=== PATIENT | female | born 1940 | race Caucasian/White ===

== ENCOUNTER 2019-05-30 14:34 | Observation (INO) ==
[2019-05-30] MEDS ORDERED: Clindamycin 900 MG/50 ML 900 MG/50 ML IV.SOLN IVPB ONE (14:48)
[2019-05-30] MEDS ORDERED: Acetaminophen IV 1,000 MG/100 ML INFUS..BTL IVPB ONE (15:29)
[2019-05-30] MEDS ORDERED: *HR* Meperidine 25 MG/ML SYRINGE IVP PRN (16:06)
[2019-05-30] MEDS ORDERED: *HR* OxyCODONE Immed Rel 5 MG TABLET PO PRN (16:06)
[2019-05-30] MEDS ORDERED: Ondansetron 4 MG/2 ML VIAL IVP ONE (16:06)
[2019-05-30] MEDS ORDERED: *HR* FentaNYL (PF) 100 MCG/2 ML VIAL ONE (19:03)
[2019-05-30] MEDS ORDERED: *HR* Propofol 200 MG/20 ML VIAL IVP ONE (19:03)
[2019-05-30] MEDS ORDERED: Lidocaine -MPF 2% 2 ML VIAL ONE (19:05)
[2019-05-30] MEDS ORDERED: *HR* Succinylcholine 200 MG/10 ML VIAL IVP ONE (19:05)
[2019-05-30] MEDS ORDERED: *HR* PHENYLEPHRINE 1,000 MCG/10 ML SYRINGE IVP ONE (20:04)
[2019-05-30] MEDS ORDERED: Ondansetron 4 MG/2 ML VIAL ONE (20:04)
[2019-05-30] MEDS ORDERED: EPHEDrine 50 MG/ML VIAL ONE (20:27)
[2019-05-30] MEDS: *HR* FentaNYL (PF) 100 MCG/2 ML VIAL IVP PRN ×2 (22:02→22:22)
[2019-05-30] MEDS ORDERED: Ketorolac 15 MG/ML VIAL IVP PRN (22:53)
[2019-05-30] MEDS ORDERED: 0.9 % Sodium Chloride 1,000 ML IVC SCH (22:53)
[2019-05-30] MEDS: Ondansetron 4 MG/2 ML VIAL IVP PRN (23:30)
[2019-05-31] MEDS: Ondansetron 4 MG/2 ML VIAL IVP PRN (03:39)
[2019-05-31 07:13] VITALS: BP 110/65
[2019-05-31] MEDS ORDERED: Ketorolac 15 MG/ML VIAL IVP ONE (08:40)
[2019-05-31] MEDS ORDERED: *HR* OxyCODONE/APAP 5/325 TABLET PO PRN (08:41)
== END 2019-05-31 13:22 | disposition home or self-care (01) ==
LOC: SAMDAY 14:34 → 3BNU 14:34
PROVIDERS: ADMIT Surgery; ATTEND Surgery

== ENCOUNTER 2019-06-10 10:16 | Observation (INO) ==
[2019-06-10 10:54] LABS: Basophils % 0.4 %; Eosinophils # 0.5 K/mcL (0.0-0.6); Eosinophils % 5.2 %; Hematocrit 36.9 % (35.3-44.9); Hemoglobin 12.4 g/dL (11.5-15.4); Immature Granulocytes % 0.5 % (0-4); Lymphocytes # 1.2 K/mcL (0.6-4.6); Lymphocytes % 11.5 %; Mean Corpuscular HGB Conc 33.6 g/dL (31.6-35.5); Mean Corpuscular Hemoglobin 29.2 pg (28.0-33.3); Mean Corpuscular Volume 86.8 fL (83.0-100.0); Monocytes # 0.7 K/mcL (0.0-1.3); Neutrophils # 7.6 K/mcL (1.6-8.9); Platelet Count 428 K/mcL (140-400); Red Blood Count 4.25 M/mcL (3.82-4.97); Red Cell Distribution Width 13.3 % (11.5-14.5); Segmented Neutrophils % 75.4 %
[2019-06-10 11:12] LABS: BUN/Creatinine Ratio 17 (6-26); Blood Urea Nitrogen 16 mg/dL (8-23); Calcium 9.8 mg/dL (8.6-10.3); Carbon Dioxide 30 mEq/L (23-29); Chloride 99 mEq/L (98-107); Glucose 150 mg/dL (70-105); Osmolality,Calculated 290 (280-300); Sodium 138 mEq/L (136-145); eGFR For African Americans > 60 (> 60); eGFR For Non-African Americans 58 (> 60)
[2019-06-10 11:13] LABS: Troponin I < 0.03 ng/mL (< 0.04)
[2019-06-10] MEDS ORDERED: Ondansetron 4 MG/2 ML VIAL IVP ONE (11:28)
[2019-06-10] MEDS ORDERED: Isovue-370 500 ML BOTTLE IVP ONE (11:29)
[2019-06-10] MEDS ORDERED: *HR* FentaNYL (PF) 100 MCG/2 ML VIAL IVP ONE (11:40)
[2019-06-10 11:45] LABS: INR 1.1; Prothrombin Time 12.2 Seconds (9.4-12.1)
[2019-06-10 11:47] LABS: Activated Partial Thrombo Time 34.3 Seconds (26.0-36.0); Alanine Aminotransferase 15 Units/L (7-52); Albumin 3.9 g/dL (3.5-5.7); Albumin/Globulin Ratio 1.3 (1.1-2.2); Alkaline Phosphatase 68 Units/L (34-104); Aspartate Amino Transferase 15 Units/L (13-39); Bilirubin,Direct 0.1 mg/dL (0.0-0.2); Bilirubin,Indirect 0.2 mg/dL (0.0-1.0); Bilirubin,Total 0.3 mg/dL (0.3-1.0); Globulin 3.1 g/dL (2.4-3.5); Lipase 6 Units/L (11-82)
[2019-06-10] MEDS ORDERED: Cefepime HCl 1,000 MG in 0.9 % Sodium Chloride Mini Bag 100 ML IVPB STA (12:20)
[2019-06-10] MEDS ORDERED: MetroNIDAZOLE 500 MG/100 ML 500 MG/100 ML BAG IVPB ONE (12:20)
[2019-06-10] MEDS ORDERED: Ondansetron ODT 4 MG TAB.RAPDIS SL PRN (12:30)
[2019-06-10] MEDS ORDERED: Naloxone 0.4 MG/ML INJ IVP PRN ×2 (12:30→18:01)
[2019-06-10] MEDS ORDERED: *HR* OxyCODONE Immed Rel 5 MG TABLET PO ONE (14:29)
[2019-06-10] MEDS: D5% in 0.45% NACL 1,000 ML IVC SCH (15:30)
[2019-06-10 19:09] LABS: Bilirubin,Urine Negative (Negative); Blood,Urine Trace (Negative); Clarity,Urine Clear (Clear); Color,Urine Yellow (Yellow); Glucose,Urine (UA) Normal (Normal); Ketones,Urine Negative (Negative); Leukocyte Esterase,Urine Small (Negative); Nitrite,Urine Negative (Negative); PH,Urine 5.5 pH Units (5.0-8.0); Protein,Urine Negative (Neg-Trace); Specific Gravity,Urine > 1.030 (1.010-1.025); Urobilinogen,Urine Normal (Normal)
[2019-06-10 19:11] LABS: Bacteria,Urine None Seen per hpf (None-Few); Hyaline Casts,Urine Few per lpf (None-Few); Squamous Epithelial Cell,Urine Many per lpf (None-Few); WBC,Urine 30-50 per hpf (0-3)
[2019-06-10] MEDS: *HR* OxyCODONE Immed Rel 5 MG TABLET PO PRN (20:50)
[2019-06-11] MEDS: *HR* OxyCODONE Immed Rel 5 MG TABLET PO PRN ×3 (03:30→15:44)
[2019-06-11] MEDS: D5% in 0.45% NACL 1,000 ML IVC SCH (05:05)
[2019-06-11] MEDS ORDERED: Acetaminophen IV 1,000 MG/100 ML INFUS..BTL IVPB STA (09:31)
[2019-06-11] MEDS ORDERED: Ibuprofen 800 MG TABLET PO ONE (12:43)
[2019-06-11] MEDS: Gabapentin 300 MG CAPSULE PO SCH ×2 (13:03→15:44)
[2019-06-11 14:32] VITALS: BP 108/48
[2019-06-12] MEDS ORDERED: Valsartan 80 MG TABLET PO SCH (09:00)
== END 2019-06-11 18:39 | disposition home or self-care (01) ==
LOC: 3ANU 10:16 → EMEROOARM 10:16 → 3ANU 13:39
PROVIDERS: ADMIT Internal Medicine; ATTEND Internal Medicine
PROC: IRFLUID (2019-06-11 12:00)

== ENCOUNTER 2021-12-28 18:11 | Inpatient (IN) ==
[2021-12-28] MEDS ORDERED: Aspirin 325 MG TABLET PO ONE (18:33)
[2021-12-28] MEDS: Nitroglycerin 0.4 MG TAB.SUBL SL PRN ×2 (18:51→19:37)
[2021-12-28 19:21] LABS: Basophils % 0.3 %; Eosinophils # 0.1 K/mcL (0.0-0.6); Eosinophils % 0.7 %; Hematocrit 36.3 % (35.3-44.9); Hemoglobin 11.8 g/dL (11.5-15.4); Immature Granulocytes % 0.3 % (0-4); Lymphocytes # 1.5 K/mcL (0.6-4.6); Lymphocytes % 14.1 %; Mean Corpuscular HGB Conc 32.5 g/dL (31.6-35.5); Mean Platelet Volume 9.7 fL (9.4-12.4); Monocytes # 1.1 K/mcL (0.0-1.3); Monocytes % 10.6 %; Platelet Count 301 K/mcL (140-400); Red Blood Count 4.22 M/mcL (3.82-4.97); Red Cell Distribution Width 13.7 % (11.5-14.5); White Blood Count 10.8 K/mcL (4.3-11.1)
[2021-12-28 19:28] LABS: Prothrombin Time 11.3 Seconds (9.4-12.1)
[2021-12-28 19:30] LABS: Activated Partial Thrombo Time 36.2 Seconds (26.0-36.0)
[2021-12-28 19:41] LABS: Alanine Aminotransferase 16 Units/L (7-52); Albumin 4.3 g/dL (3.5-5.7); Albumin/Globulin Ratio 1.3 (1.1-2.2); Alkaline Phosphatase 63 Units/L (34-104); Aspartate Amino Transferase 14 Units/L (13-39); BUN/Creatinine Ratio 19 (6-26); Bilirubin,Direct 0.1 mg/dL (0.0-0.2); Bilirubin,Indirect 0.4 mg/dL (0.0-1.0); Bilirubin,Total 0.5 mg/dL (0.3-1.0); Blood Urea Nitrogen 18 mg/dL (8-23); Calcium 10.1 mg/dL (8.6-10.3); Carbon Dioxide 31 mEq/L (23-29); Chloride 94 mEq/L (98-107); Globulin 3.3 g/dL (2.4-3.5); Glucose 136 mg/dL (70-105); Lipase 27 Units/L (11-82); Osmolality,Calculated 282 (280-300); Potassium 3.4 mEq/L (3.5-5.1); Sodium 134 mEq/L (136-145); Total Protein 7.6 g/dL (6.4-8.9); Troponin I < 0.03 ng/mL (< 0.04); eGFR For African Americans > 60 (> 60); eGFR For Non-African Americans 57 (> 60)
[2021-12-28] MEDS ORDERED: Nitroglycerin 1 INCH/GM PACKET TP ONE (19:58)
[2021-12-28] MEDS ORDERED: Acetaminophen 325 MG TABLET PO PRN (23:05)
[2021-12-28] MEDS ORDERED: Ondansetron 4 MG/2 ML VIAL IVP PRN (23:05)
[2021-12-28] MEDS ORDERED: Melatonin 3 MG TABLET PO PRN (23:05)
[2021-12-28] MEDS ORDERED: Naloxone 0.4 MG/ML INJ IVP PRN (23:05)
[2021-12-28] MEDS ORDERED: *HR* HYDROcodone/Acet 5/325 mg TABLET PO PRN (23:05)
[2021-12-28] MEDS ORDERED: Perflutren Lipid Microsphere 1.3 ML in 0.9 % Sodium Chloride 8.7 ML IVP PRN (23:21)
[2021-12-29] MEDS ORDERED: Potassium Chloride Elixir 20 MEQ/15 ML UDC PO ONE ×3 (00:01→12:00)
[2021-12-29 01:39] LABS: Hemoglobin 11.1 g/dL (11.5-15.4); Mean Corpuscular HGB Conc 32.6 g/dL (31.6-35.5); Mean Corpuscular Volume 85.6 fL (83.0-100.0); Mean Platelet Volume 9.4 fL (9.4-12.4); Platelet Count 262 K/mcL (140-400); Red Blood Count 3.97 M/mcL (3.82-4.97); Red Cell Distribution Width 13.8 % (11.5-14.5); White Blood Count 9.1 K/mcL (4.3-11.1)
[2021-12-29 01:54] LABS: INR 1.2; Prothrombin Time 12.9 Seconds (9.4-12.1)
[2021-12-29 01:57] LABS: Activated Partial Thrombo Time 33.5 Seconds (26.0-36.0)
[2021-12-29 02:03] LABS: BUN/Creatinine Ratio 14 (6-26); Blood Urea Nitrogen 14 mg/dL (8-23); Calcium 9.8 mg/dL (8.6-10.3); Carbon Dioxide 30 mEq/L (23-29); Chloride 93 mEq/L (98-107); Cholesterol 130 mg/dL (< 200); Glucose 265 mg/dL (70-105); HDL Cholesterol 44 mg/dL (40-59); LDL Cholesterol,Calculated 58 mg/dL (< 100); Magnesium 1.5 mg/dL (1.6-2.6); Osmolality,Calculated 286 (280-300); Phosphorous 2.2 mg/dL (2.7-4.5); Potassium 3.2 mEq/L (3.5-5.1); Sodium 133 mEq/L (136-145); Triglycerides 140 mg/dL (< 150); Troponin I < 0.03 ng/mL (< 0.04); eGFR For African Americans > 60 (> 60); eGFR For Non-African Americans 55 (> 60)
[2021-12-29 03:19] LABS: Estimated Average Glucose 166 mg/dl; Hemoglobin A1C 7.4 %
[2021-12-29] MEDS ORDERED: Regadenoson 0.4 MG/5 ML SYRINGE IVP ONE ×2 (06:05→11:27)
[2021-12-29] MEDS ORDERED: D5% in Water 1,000 ML IVC PRN (07:19)
[2021-12-29] MEDS ORDERED: *HR* Dextrose 50 % in Water (Syg) 50 ML SYRINGE IVP PRN (07:19)
[2021-12-29] MEDS ORDERED: Dextrose Gel 15 GM/37.5 ML TUBE PO PRN ×2 (07:19)
[2021-12-29] MEDS: Insulin DETEMIR 100 UNIT/ML X5UNITS SUBQ SCH (09:30)
[2021-12-29 09:31] LABS: Bilirubin,Urine Negative (Negative); Blood,Urine Small (Negative); Clarity,Urine Clear (Clear); Color,Urine Light-Yellow (Yellow); Glucose,Urine (UA) Normal (Normal); Ketones,Urine Negative (Negative); Leukocyte Esterase,Urine Large (Negative); Mucus,Urine Few per lpf (None-Few); Nitrite,Urine Negative (Negative); PH,Urine 6.5 pH Units (5.0-8.0); Protein,Urine Negative (Neg-Trace); RBC,Urine 0-3 per hpf (0-3); Specific Gravity,Urine 1.013 (1.010-1.025); Squamous Epithelial Cell,Urine Few per hpf (None-Few); Urobilinogen,Urine Normal (Normal); WBC,Urine 15-30 per hpf (0-3)
[2021-12-29] MEDS: Aspirin 81 MG TAB.CHEW PO SCH (13:29)
[2021-12-29] MEDS: *HR* Heparin 5,000 UNIT/ML VIAL SQ SCH ×2 (13:30→21:24)
[2021-12-29] MEDS: Insulin LISPRO 300 UNITS/3 ML VIAL SUBQ SCH ×2 (13:30→17:03)
[2021-12-29] MEDS ORDERED: Gabapentin 400 MG CAPSULE PO SCH (21:00)
[2021-12-30] MEDS: Insulin LISPRO 300 UNITS/3 ML VIAL SUBQ SCH ×2 (01:35→05:18)
[2021-12-30] MEDS: *HR* Heparin 5,000 UNIT/ML VIAL SQ SCH (05:18)
[2021-12-30 06:59] VITALS: BP 145/78; PULSE 79; TEMP 97.8; O2SAT 96
[2021-12-30] MEDS: Aspirin 81 MG TAB.CHEW PO SCH (08:40)
[2021-12-30] MEDS: Insulin DETEMIR 100 UNIT/ML X5UNITS SUBQ SCH (08:42)
[2021-12-30] MEDS ORDERED: hydroCHLOROthiazide 25 MG TABLET PO SCH (09:00)
[2021-12-30] MEDS ORDERED: Gabapentin 400 MG CAPSULE PO SCH (21:00)
== END 2021-12-30 11:05 | disposition home or self-care (01) | DRG 303 ==
LOC: 3BNU 18:11 → EMEROOARM 18:11 → SUATTDRO 22:59 → 3BNU 23:59
PROVIDERS: ADMIT Internal Medicine; ATTEND Internal Medicine